=== PATIENT | female | born 1995 | race African-American/Black ===

== ENCOUNTER → 2016-10-15 | Outpatient (CLI) | payer BC ==
--- NOTE | 2016-10-15 11:50 | KCIC ---
INDICATION: Vaginal bleeding. IUD. Pelvic pain. TECHNIQUE: Transabdominal pelvic ultrasound was performed. Transvaginal imaging was also performed to better evaluate the endometrial contents. FINDINGS: Uterus measures 9.8 x 3.9 x 5.7 cm. Endometrial stripe measures 3 mm. IUD is in the lower uterine segment. Small amount of free pelvic fluid is noted, appears simple. Both ovaries are visualized with color flow and waveform documented. There is a complex cyst in the right ovary measuring 2.1 cm in size and a complex cyst in the left ovary measuring 2.5 cm in size. IMPRESSION: IUD is in the lower uterine segment. Electronically signed by: Jakob Randhawa MD (10/15/2016 11:47 AM) [id number]
== END | disposition home or self-care (01) ==
LOC: KCIC US 10:50
PROVIDERS: ATTEND Obstetrics & Gynecology
DX: N93.9 Abnormal uterine and vaginal bleeding, unspecified (principal); N83.202 Unspecified ovarian cyst, left side; N83.201 Unspecified ovarian cyst, right side
CPT/HCPCS: 76830; 76856